=== PATIENT | male | born 1980 | race Two or more races ===

== ENCOUNTER 2019-07-21 14:24 | Emergency (ER) | payer SELFPAY ==
[~2019-07-21] VITALS: Ht 165.1 cm; Wt 72.6 kg
[2019-07-21] MEDS ORDERED: HYDROcodone/Acetamin 5/325 tab ORAL ONE (14:45)
[2019-07-21] MEDS ORDERED: Tetanus/Diptheria/Pertussis IM ONE (14:45)
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
[2019-07-21 15:31] VITALS: BP 130/60
[2019-07-21] MEDS ORDERED: Bacitracin Oint 15gm Tube TOPIC ONE (15:45)
[2019-07-21] MEDS ORDERED: CEPHALEXIN500 MG ORAL (15:49)
[2019-07-21] MEDS ORDERED: NORCO 5-325 TA1 EAC1 ORAL (15:49)
[2019-07-21] MEDS ORDERED: BACITRACIN15 GM TOPIC (15:49)
[2019-07-21 16:05] VITALS: BP 130/60
--- NOTE | 2019-07-21 16:05 | NUR ---
ER DISCHARGE NOTE: Patient is cleared to be discharged per ERMD, pt is aox4, on room air, with stable vital signs. pt was given dc and prescription instructions, pt was able to verbalize understanding, pt is able to ambulate with steady gait. pt took all belongings.
--- NOTE | 2019-07-21 16:51 | Diagnostic Imaging Report ---
Indication: Pain, trauma, status post fall Technique: 2 views of the left shoulder Comparison: none Findings: There is a comminuted the mental fracture of the midshaft clavicle. This is displaced by at least one bone width on both sides of the central fragment. There is considerable overriding. No evidence of humeral or scapular fracture. Impression: Positive for complex left clavicular fracture
== END 2019-07-21 16:05 | disposition home or self-care (01) ==
LOC: EDBD 14:24 → EMR 15:08
DX: S42.022A Displaced fracture of shaft of left clavicle, initial encounter for closed fracture (principal); V19.9XXA Pedal cyclist (driver) (passenger) injured in unspecified traffic accident, initial encounter; Y93.9 Activity, unspecified; Y92.9 Unspecified place or not applicable
CPT/HCPCS: 29105; 90471; 90715; 99283